=== PATIENT | male | born 1970 | race Caucasian/White ===

== ENCOUNTER 2018-05-28 08:36 | Emergency (ER) | payer MEDICAID ==
[~2018-05-28] VITALS: Ht 190.5 cm; Wt 117.9 kg
[2018-05-28] MEDS ORDERED: Cheratussin AC118 ML PO (10:31)
[2018-05-28] MEDS ORDERED: HYDR1TAB94 PO (10:31)
[2018-05-28] MEDS ORDERED: Zithromax250 MG PO (10:31)
== END 2018-05-28 10:39 | disposition home or self-care (01) ==
LOC: ER 08:36
DX: J44.1 Chronic obstructive pulmonary disease with (acute) exacerbation (principal); F17.200 Nicotine dependence, unspecified, uncomplicated
CPT/HCPCS: 71046; 99283-25

== ENCOUNTER 2018-07-12 19:34 | Observation (INO) | payer SELFPAY ==
[~2018-07-12] VITALS: Ht 190.5 cm; Wt 117.9 kg
[~2018-07-12 19:34] MED LIST: Cheratussin AC118 ML PO; HYDR1TAB94 PO; Zithromax250 MG PO
[2018-07-12 20:18] LABS: BASOPHILS PERCENT AUTO 1 % (0-2); EOSINOPHILS ABSOLUTE AUTO 0.21 K/mm3 (0.00-0.68); EOSINOPHILS PERCENT AUTO 2 % (0-6); Hematocrit 45.4 % (37.0-53.0); IMMATURE GRAN ABSOLUTE AUTO 0.02 K/mm3 (0.00-0.10); IMMATURE GRAN PERCENT AUTO 0 % (0-1); LYMPHOCYTES ABSOLUTE AUTO 2.28 K/mm3 (0.84-5.20); LYMPHOCYTES PERCENT AUTO 23 % (21-46); MONOCYTES ABSOLUTE AUTO 0.64 K/mm3 (0.16-1.47); MONOCYTES PERCENT AUTO 6 % (4-13); Mean Corpuscular HGB 30.1 pg (26.0-34.0); Mean Corpuscular Volume 91 fL (80-100); Mean Platelet Volume 10.6 fL (9.1-12.4); NEUTROPHILS ABSOLUTE AUTO 6.77 K/mm3 (1.96-9.15); NEUTROPHILS PERCENT AUTO 68 % (41-73); Platelet Count 299 K/mm3 (150-400); RDW Coefficient Variation 13.2 % (11.7-14.2); RDW Standard Deviation 44.1 fL (35.1-46.3); Red Blood Cell Count 4.99 M/mm3 (4.30-5.90); White Blood Cell Count 10.02 K/mm3 (4.00-11.30)
[2018-07-12 20:35] LABS: Alanine Aminotransfer (ALT/SGP 41 U/L (12-78); Albumin/Globulin Ratio 1.1 (0.8-1.8); Alk Phos 87 U/L (50-136); Anion Gap 6 mmol/L (6-16); Aspartate Aminotrans (AST/SGOT 18 U/L (12-37); Bilirubin, Total 0.3 mg/dL (0.1-1.0); Blood Urea Nitrogen 15 mg/dL (8-24); CO2, Blood 29 mmol/L (21-32); Calcium, Blood 9.4 mg/dL (8.5-10.1); Chloride, Blood 106 mmol/L (98-108); Globulin, Blood 3.6 g/dL (2.2-4.0); Glomerular Filtration Rate >60 (60-); Glucose, Blood 121 mg/dL (70-99); Potassium, Blood 3.5 mmol/L (3.5-5.5); Sodium, Blood 141 mmol/L (136-145); Total Protein, Blood 7.6 g/dL (6.4-8.2); Troponin I <0.015 ng/mL (0.000-0.040)
--- NOTE | 2018-07-13 05:45 | NUR ---
SHIFT SUMMARY PT RESTED WELL SINCE ADMISSION. AAOX4. NPO DISCOMFORT AT TOLERABLE LEVEL SINCE ADMISSION TO FLOOR. NO NAUSEA/EMESIS. PT ORIENTED TO ROOM + CALL LIGHT USE.
--- NOTE | 2018-07-13 12:58 | NUR ---
SMOKING PT EDUCATED THAT SURGERY MAY BE DELAYED OR CANCELLED IF HE SMOKES PRIOR TO SURGERY.
--- NOTE | 2018-07-13 13:44 | NUR ---
THIS PT GAVE ME PERMISSION TO PROVIDE CARE ON 07/13/18.
--- NOTE | 2018-07-13 13:53 | NUR ---
History, Chart, Medications and Allergies reviewed before start of procedure. Lungs clear T/O to Auscultation. Patient confirms NPO status and agrees with scheduled surgery.
--- NOTE | 2018-07-13 14:09 | NUR ---
REPORT TO GENEVIEVE Tenorio RN TO ASSUME CARE OF PATIENT.
--- NOTE | 2018-07-13 15:14 | NUR ---
07/13/18 1514 Turner Castro PT ON SCHEDULED ANTIBIOTIC
--- NOTE | 2018-07-13 18:41 | NUR ---
PT ARRIVED TO THE ROOM AT APPROXIMATELY 1750. PT ALERT AND ORIENTED UPON ARRIVAL TO THE ROOM. REPORTED MILD PAIN; BUT DENIED NEED FOR ADDITIONAL PAIN MEDICATION. SUPPORT PERSON AT THE BEDSIDE. VSS. WILL MONITOR UNTIL REPORT TO ONCOMING RN
--- NOTE | 2018-07-13 19:32 | NUR ---
SHIFT SUMMARY PT HAD SURGERY TODAY. POST-OP PAIN HAS BEEN MINIMAL. MILD NAUSEA WAS RESOLVED WITH ZOFRAN. FAMILY AT THE BEDSIDE. VSS. REPORT GIVEN TO SACHIN ZIMMERMAN.
--- NOTE | 2018-07-14 05:50 | NUR ---
SHIFT SUMMARY PT IS POD1 LAP XIOMARA. NO ACUTE CHANGES THIS SHIFT. VITAL SIGNS STABLE, 02 SATS REMAINED >90% ON RA. PT TOLERATING DIET ADVANCING FROM CLEAR LIQUIDS. PT IS INDEPENDENT IN ROOM, VOIDING INDEPENDENTLY, REP PASSING FLATUS, NO BM. PT REP ADEQUATE PAIN CONTROL WITH MEDICATIONS. SURGICAL SITES WNL. WILL CONTINUE TO MONITOR.
--- NOTE | 2018-07-14 07:00 | NUR ---
REPORT FROM TRAM ZIMMERMAN. ASSUMED PT CARE.
--- NOTE | 2018-07-14 07:25 | NUR ---
ASSESSMENT CHARTED. PT C/O SOME ABD PAIN AND SCANT NAUSEA. WILL MEDICATE PER EMAR. PT ROSINA CLEARS W/O ISSUE. WILL ADVANCE DIET TODAY.
--- NOTE | 2018-07-14 07:55 | NUR ---
PT MEDICATED PER EMAR WITH NORCO AND ZOFRAN. PT AWARE TO CALL SHOULD PAIN NOT BE MANAGED OR IF NAUSEA PERSISTS.
--- NOTE | 2018-07-14 08:08 | NUR ---
PT AMBULATING IN HALLS AND TALKING ON PHONE. DENIES NEEDS.
--- NOTE | 2018-07-14 08:30 | NUR ---
DR MARK BY TO SEE PT, WILL RETURN AROUND LUNCH DUE TO PT ABSCENCE.
--- NOTE | 2018-07-14 09:15 | NUR ---
PT STILL NOT IN ROOM FOR RE-EVAL OF PAIN.
--- NOTE | 2018-07-14 09:51 | NUR ---
PT WALKING AROUND IN ROOM. STATES PAIN MANAGED.
--- NOTE | 2018-07-14 10:39 | NUR ---
CARE ASSUMED OF PT AT APPROXIMATELY 0915. PT OUT OF ROOM AT THAT TIME. ERASMO LOCK REPORTED PT HAD BEEN OUT OF HIS ROOM SINCE APPROXIMATELY 0810. PT HAS RETURNED TO THE ROOM AT THIS TIME. YOSELYN DRAIN DRAINIING SEROSANGUINOUS FLUID. PT REPORTS PAIN MANAGED. HE REPORTS PASSING FLATUS. DENIES NAUSEA. VSS. WILL CONTINUE TO MONITOR.
[2018-07-14] MEDS ORDERED: Norco 5-325 Ta1 EACH PO (14:33)
--- NOTE | 2018-07-14 15:36 | NUR ---
DISCHARGE PT PROVIDED WITH WRITTEN AND VERBAL DISCHARGE INSTRUCTIONS. HE REPORTED UNDERSTANDING ALL DISCHARGE INSTRUCTIONS. PT PROVIDED WITH DRESSINGS TO PLACE OVER DRAIN REMOVAL SITE UNTIL IT STOPS DRAINING. PT AMBULATED OUT OF HOSPITAL.
== END 2018-07-14 15:38 | disposition home or self-care (01) ==
LOC: ER 19:34 → SURS 22:23 → ER 22:23 → SURS 22:23
PROVIDERS: Physician Assistant; ADMIT Surgery
PROC: 0FT44ZZ Resection of Gallbladder, Percutaneous Endoscopic Approach (ICD-10-PCS; principal; 2018-07-13 13:30)
DX: K80.00 Calculus of gallbladder with acute cholecystitis without obstruction (principal); J44.9 Chronic obstructive pulmonary disease, unspecified; F17.210 Nicotine dependence, cigarettes, uncomplicated
CPT/HCPCS: 36415; 74176; 76705; 80053; 83605; 83690; 84484; 85025; 93005; 93010; 96361; 96365; 96375; 96376; 99285-25; A9270-GY; J0295; J1100; J1170; J1650; J1885; J2250; J2270; J2405; J2704; J3010; J7030; J7120

== ENCOUNTER 2018-12-25 11:35 | Emergency (ER) | payer OTHER ==
[~2018-12-25] VITALS: Ht 182.9 cm; Wt 81.7 kg
[~2018-12-25 11:35] MED LIST changes: +Norco 5-325 Ta1 EACH PO
[2018-12-25] MEDS ORDERED: TRIA15CR3 TOP (12:01)
== END 2018-12-25 12:21 | disposition home or self-care (01) ==
LOC: ER 11:35
DX: L23.7 Allergic contact dermatitis due to plants, except food (principal); F17.210 Nicotine dependence, cigarettes, uncomplicated
CPT/HCPCS: 96372; 99282-25; J3301

== ENCOUNTER 2019-06-03 18:40 | Emergency (ER) | payer OTHER ==
[~2019-06-03] VITALS: Ht 190.5 cm; Wt 117.9 kg
[~2019-06-03 18:40] MED LIST changes: +TRIA15CR3 TOP
[2019-06-03] MEDS ORDERED: GUAI600T33 PO (19:13)
[2019-06-03] MEDS ORDERED: BENZ100A PO (19:15)
[2019-06-03] MEDS ORDERED: ALBU90OI INH (19:15)
[2019-06-03] MEDS ORDERED: Augmentin 875-1 EACH PO (19:15)
== END 2019-06-03 19:28 | disposition home or self-care (01) ==
LOC: ER 18:40
DX: J01.90 Acute sinusitis, unspecified (principal); B96.89 Other specified bacterial agents as the cause of diseases classified elsewhere; Z79.899 Other long term (current) drug therapy; J44.9 Chronic obstructive pulmonary disease, unspecified; F17.210 Nicotine dependence, cigarettes, uncomplicated
CPT/HCPCS: 99283

== ENCOUNTER 2019-12-11 09:36 | Emergency (ER) | payer OTHER ==
[~2019-12-11] VITALS: Ht 190.5 cm; Wt 113.4 kg
[~2019-12-11 09:36] MED LIST changes: +ALBU90OI INH; +Augmentin 875-1 EACH PO; +BENZ100A PO; +GUAI600T33 PO
[2019-12-11] MEDS ORDERED: AMOX500 PO (12:48)
[2019-12-11] MEDS ORDERED: ALBU90OI INH (12:48)
== END 2019-12-11 12:56 | disposition home or self-care (01) ==
LOC: ER 09:36
DX: J44.0 Chronic obstructive pulmonary disease with (acute) lower respiratory infection (principal); J20.9 Acute bronchitis, unspecified; F17.210 Nicotine dependence, cigarettes, uncomplicated; Z88.1 Allergy status to other antibiotic agents; Z79.899 Other long term (current) drug therapy
CPT/HCPCS: 99283

== ENCOUNTER 2019-12-24 07:28 | Emergency (ER) | payer OTHER ==
[~2019-12-24] VITALS: Ht 190.5 cm; Wt 113.4 kg
[~2019-12-24 07:28] MED LIST changes: +AMOX500 PO
[2019-12-24] MEDS ORDERED: TESSALON PERLE100 MG PO (08:25)
[2019-12-24] MEDS ORDERED: CEFU500T30 PO (08:25)
== END 2019-12-24 08:28 | disposition home or self-care (01) ==
LOC: ER 07:28
DX: J44.0 Chronic obstructive pulmonary disease with (acute) lower respiratory infection (principal); J20.9 Acute bronchitis, unspecified; F17.210 Nicotine dependence, cigarettes, uncomplicated; Z88.1 Allergy status to other antibiotic agents
CPT/HCPCS: 99283

== ENCOUNTER 2020-08-09 12:44 | Emergency (ER) | payer OTHER ==
[~2020-08-09] VITALS: Ht 190.5 cm; Wt 111.1 kg
[~2020-08-09 12:44] MED LIST changes: +CEFU500T30 PO; +TESSALON PERLE100 MG PO
[2020-08-09] MEDS ORDERED: Bactrim Ds Tab1 EACH PO (13:44)
[2020-08-09] MEDS ORDERED: CEPH500 PO (13:44)
[2020-08-09] MEDS ORDERED: Mupirocin22 GM TOP (13:44)
== END 2020-08-09 13:50 | disposition home or self-care (01) ==
LOC: ER 12:44
DX: L03.114 Cellulitis of left upper limb (principal); J43.9 Emphysema, unspecified; F17.210 Nicotine dependence, cigarettes, uncomplicated
CPT/HCPCS: 99283; A9270

== ENCOUNTER 2021-03-07 12:19 | Emergency (ER) | payer OTHER ==
[~2021-03-07] VITALS: Ht 190.5 cm; Wt 117.9 kg
[~2021-03-07 12:19] MED LIST changes: +Bactrim Ds Tab1 EACH PO; +CEPH500 PO; +Mupirocin22 GM TOP
[2021-03-07 13:22] LABS: BASOPHILS ABSOLUTE AUTO 0.09 K/mm3 (0.00-0.23); BASOPHILS PERCENT AUTO 1 % (0-2); EOSINOPHILS ABSOLUTE AUTO 0.22 K/mm3 (0.00-0.68); EOSINOPHILS PERCENT AUTO 3 % (0-6); Hematocrit 46.7 % (37.0-53.0); Hemoglobin 15.2 g/dL (13.5-17.5); IMMATURE GRAN ABSOLUTE AUTO 0.03 K/mm3 (0.00-0.10); IMMATURE GRAN PERCENT AUTO 0 % (0-1); LYMPHOCYTES ABSOLUTE AUTO 2.26 K/mm3 (0.84-5.20); LYMPHOCYTES PERCENT AUTO 27 % (21-46); MONOCYTES ABSOLUTE AUTO 0.65 K/mm3 (0.16-1.47); MONOCYTES PERCENT AUTO 8 % (4-13); Mean Corpuscular HGB 29.8 pg (26.0-34.0); Mean Corpuscular HGB Conc 32.5 g/dL (31.5-36.5); Mean Corpuscular Volume 92 fL (80-100); Mean Platelet Volume 10.2 fL (9.1-12.4); NEUTROPHILS ABSOLUTE AUTO 5.07 K/mm3 (1.96-9.15); NEUTROPHILS PERCENT AUTO 61 % (41-73); Platelet Count 264 K/mm3 (150-400); RDW Coefficient Variation 13.3 % (11.7-14.2); RDW Standard Deviation 45.2 fL (35.1-46.3); White Blood Cell Count 8.32 K/mm3 (4.00-11.30)
[2021-03-07 13:45] LABS: Alanine Aminotransfer (ALT/SGP 50 U/L (12-78); Albumin, Blood 3.7 g/dL (3.4-5.0); Albumin/Globulin Ratio 1.1 (0.8-1.8); Alk Phos 91 U/L (50-136); Anion Gap 3 mmol/L (6-16); Aspartate Aminotrans (AST/SGOT 14 U/L (12-37); Bilirubin, Total 0.2 mg/dL (0.1-1.0); Blood Urea Nitrogen 11 mg/dL (8-24); Bun/Creatinine Ratio 15.8 (12.0-20.0); CO2, Blood 27 mmol/L (21-32); Calcium, Blood 8.8 mg/dL (8.5-10.1); Chloride, Blood 110 mmol/L (98-108); Globulin, Blood 3.3 g/dL (2.2-4.0); Glomerular Filtration Rate >60 (60-); Glucose, Blood 85 mg/dL (70-99); Potassium, Blood 4.6 mmol/L (3.5-5.5); Sodium, Blood 140 mmol/L (136-145)
[2021-03-07 15:24] LABS: Source, Urine Clean Catch
[2021-03-07 15:47] LABS: Appearance, Urine Clear (Clear); Bilirubin, Urine Neg (Neg); Blood, Urine Neg (Neg); Color, Urine Yellow (P-Yellow); Glucose Qualitative, Urine Neg (Neg); Ketones, Urine Neg (Neg); Leukocyte Esterase, Urine Neg (Neg); Nitrite, Urine Neg (Neg); Protein, Urine Neg (Neg); Specific Gravity, Urine 1.015 (1.003-1.022); Urobilinogen, Urine NORM (Normal)
== END 2021-03-07 16:23 | disposition home or self-care (01) ==
LOC: ER 12:19
PROVIDERS: Physician Assistant
DX: R10.9 Unspecified abdominal pain (principal); R30.0 Dysuria; J43.9 Emphysema, unspecified; F17.210 Nicotine dependence, cigarettes, uncomplicated; Z88.1 Allergy status to other antibiotic agents
CPT/HCPCS: 36415; 74176; 80053; 81003; 83690; 85025; 96374; 96375; 99284-25